=== PATIENT | male | born 1955 | race Caucasian/White ===

== ENCOUNTER → 2016-12-30 | Outpatient (CLI) | payer BC ==
[~2016-12-30] MED LIST: DYZ PO; MULT-190 PO; MULT-506 PO; SIMV80TA2 PO
[2016-12-30 13:07] LABS: ESTIMATED AVERAGE GLUCOSE 332 mg/dl; HA1C FLAG Normal (Normal)
== END | disposition home or self-care (01) ==
LOC: C.LAB 10:55
PROVIDERS: ATTEND Internal Medicine
DX: R73.09 Other abnormal glucose (principal)

== ENCOUNTER → 2017-05-18 | Outpatient (CLI) | payer BC ==
[2017-05-18 16:13] LABS: ALBUMIN 3.9 gm/dl (3.4-5.0); ALT/SGPT 24 U/L (12-78); AST/SGOT 16 U/L (15-37); BLOOD UREA NITROGEN 15 mg/dl (7-18); CALCIUM 9.4 mg/dl (8.5-10.1); CARBON DIOXIDE 26 mmol/L (21-32); CREATININE 1.03 mg/dl (0.60-1.40); GLUCOSE 93 mg/dl (70-99); POTASSIUM 3.8 mmol/L (3.5-5.1); SODIUM 137 mmol/L (136-145)
[2017-05-18 16:16] LABS: ALKALINE PHOSPHATASE 52 U/L (45-117); CHOLESTEROL 128 mg/dl (0-200); LDL CHOLESTEROL CALCULATED 42 mg/dl; TOTAL PROTEIN 8.1 gm/dl (6.4-8.2)
[2017-05-19 07:49] LABS: HEMOGLOBIN A1C 5.7 % (4.5-5.6)
== END | disposition home or self-care (01) ==
LOC: C.LAB1850 14:45
PROVIDERS: ATTEND Internal Medicine
DX: E11.65 Type 2 diabetes mellitus with hyperglycemia (principal)

== ENCOUNTER 2021-06-21 07:52 | Observation (INO) ==
--- NOTE | 2021-06-09 08:36 | Anesthesiology Consultation ---
Date of Service June 09, 2021 Assessment & Plan (1) Encounter for pre-operative examination: - COVID screening: Per assessment on 06/09: No known COVID-19 positive contacts or current COVID-19 related symptoms. Travel screen negative but patient reports that he might visit his son from 06/11-06/13 in [place]. No large gatherings/crowds. Will wear proper PPE/follow Covid precaution guidelines in public. Patient vaccinated. DOS 06/21. Since patient will be requiring admission post-operatively, will plan for recheck with COVID Melchor AM DOS anyway- order placed. Surgeon arranging preop COVID testing. Awaiting results. - Check BSG AM DOS Chart Review Chart Review: Acceptable Risk for Surgery and Patient seen in Pre Admission Testing Teaching & Discussion Pre-Anesthesia Teaching/Discussion Notes: Instructed NPO after midnight before surgery,except medications with 15 cc of water. Medication instructions provided according to the PAT guidelines. History Surgery Operation Date: 06/21/21 12:30 Proposed Procedures p Right Total Knee Arthroplasty - Jesse Garcia MD Height/Weight Height: 5 ft 10 in Weight: 110.4 kg Allergies Allergy/AdvReac Type Severity Reaction Status Date / Time No Known Allergies Allergy Verified 06/08/21 11:19 Medications Home Medications Medication Instructions Recorded Confirmed Last Taken aspirin 81 mg tablet 81 mg PO HS 05/06/20 06/08/21 05/10/20 vitamins A,C,F-femb-nspcmu 7,160 1 tab PO BID 05/06/20 06/08/21 Unknown unit-113 mg-100 unit tablet (PreserVision AREDS) tamsulosin 0.4 mg capsule 0.4 mg PO QAM #90 cap 08/03/20 06/08/21 Unknown triamterene 37.5 1 tab PO QAM #90 tab 09/06/20 06/08/21 Unknown mg-hydrochlorothiazide 25 mg tablet lancets 33 gauge (OneTouch Delica #100 ea 11/29/20 06/06/21 Unknown Lancets) simvastatin 80 mg tablet 80 mg PO HS #90 tab 12/02/20 06/08/21 Unknown metformin 500 mg tablet,extended 1,000 mg PO BID #360 tab 12/29/20 06/08/21 Unknown release 24hr folic acid 1 mg tablet 1 mg PO QAM 05/24/21 06/08/21 Unknown methotrexate sodium 2.5 mg tablet 2.5 mg PO DIRECTED 05/24/21 06/08/21 Unknown blood sugar diagnostic #100 ea 05/25/21 06/06/21 Unknown blood-glucose meter (OneTouch #1 ea 05/25/21 06/06/21 Unknown Ultra2 Meter) lancets (OneTouch UltraSoft #100 ea 05/25/21 06/06/21 Unknown Lancets) finasteride 5 mg tablet 5 mg PO QAM 06/08/21 06/08/21 Unknown glimepiride 1 mg tablet 3 mg PO QAM 06/08/21 06/08/21 Unknown lisinopril 10 mg tablet 10 mg PO QAM 06/08/21 06/08/21 Unknown meloxicam 15 mg tablet 15 mg PO DAILY PRN 06/08/21 06/08/21 Unknown Past Medical History Medical History BPH (benign prostatic hyperplasia) History of kidney stones Hypercholesteremia Macular degeneration Meniere's disease Rheumatoid arthritis Predominantly hands/wrist affected. No cervicalgia/neck involvement per pt. Type 2 diabetes mellitus NIDDM Exercise / Class Metabolic Activity II 4-5 Yardwork/Stairs/Walk up hill (one FS (no CP, no SOB)) Past Family History Family History Mother Diabetes Heart disease Heart disease Breast cancer Sister Diabetes FH: uterine cancer Brother Diabetes Father Heart disease Family/Other Prostate cancer Coronary heart disease Aorta aneurysm Hypertension Other No family history of adverse response to anesthesia Past Surgical History Surgical History H/O prostate biopsy benign History of carpal tunnel surgery of left wrist History of colonoscopy Colonoscopy (05/12/20): MAC at [facility] History of lumbar discectomy x2 History of lumbar spinal fusion History of right inguinal hernia repair History of tonsillectomy and adenoidectomy History of umbilical hernia repair History of wisdom tooth extraction Nausea and vomiting after administration of anesthetic agent S/P hernia repair at age 10 Past Anesthesia History No Hx of Anesthesia Complications (except PONV) and No Family Hx of Anesthesia Complications History of PONV History of PONV and Hx of Motion Sickness Social History Smoking Status: Never smoker Do You Dip or Chew Tobacco: No Hx Alcohol Use: Yes Alcohol type: beer alcohol intake frequency: holidays/special occasions only Hx Substance Use: No substance use type: does not use Review of Systems Patient denies chest pain, shortness of breath, dyspnea on exertion, fever, chills, cough, wheezing, palpitations. Physical Exam Vital Signs VITALS BP 116/76 P 80 TEMP 98.4 SP02 96%RA RESP 16 PHYSICAL Very mildly decreased cervical extension range of motion. Full TMJ range of motion. TMD 4 finger breaths Mallampati Score 2 Dentition: intact, several implants/crowns (including upper front crowns) Lungs: clear throughout to auscultation Cardiac: regular rate and rhythm, no murmurs noted Spine: normal Carotid arteries: negative bruit Extremities: no edema Lab Results Anesthesia Preop Results Results Anesthesia Widget: WBC 6.95 K/uL (4.8-10.8) 05/25/21 Hgb 14.6 g/dL (14.0-18.0) 05/25/21 Hct 43.2 % (42-52) 05/25/21 Plt 307 K/uL (130-400) 05/25/21 Na 135 mmol/L (136-145) L 06/03/21 K 4.1 mmol/L (3.5-5.1) 06/03/21 Cl 104 mmol/L (98-107) 06/03/21 CO2 23 mmol/L (21-32) 06/03/21 BUN 16 mg/dl (6-23) 06/03/21 Creat 1.00 mg/dl (0.6-1.4) 06/03/21 Glucose Level 124 mg/dl (70-99(Fasting)) H 06/03/21 PT 10.6 Seconds (9.0-12.0) 06/09/21 PTT 27.0 Seconds (21.0-31.0) 06/09/21 INR 1.0 (0.9-1.1) 06/09/21 HA1c 6.7 % (4.5-5.6) H 05/25/21 Blood Type A Positive 06/09/21 Antibody Screen NEGATIVE 06/09/21 Testing Electrocardiogram Date: 06/09/21 Sinus rhythm at 72 bpm. Nonspecific T wave abnormality. Chest X-Ray Date: 06/09/21 FINDINGS: No pneumothorax. No pleural effusions. The heart is normal in size. Old, healed right-sided rib fracture. Mild diffuse interstitial thickening. This is likely chronic. No focal lung consolidations to suggest pneumonia. No evidence for pulmonary edema. IMPRESSION: No significant change compared to the prior study. No acute process.
--- NOTE | 2021-06-09 08:38 | PAT Medication Instructions ---
Medication Instructions Date of Service June 09, 2021 Home Medications Medication Instructions Recorded tamsulosin 0.4 mg capsule 0.4 mg PO QAM #90 cap 08/03/20 triamterene 37.5 1 tab PO QAM #90 tab 09/06/20 mg-hydrochlorothiazide 25 mg tablet lancets 33 gauge (OneTouch Delica #100 ea 11/29/20 Lancets) simvastatin 80 mg tablet 80 mg PO HS #90 tab 12/02/20 metformin 500 mg tablet,extended 1,000 mg PO BID #360 tab 12/29/20 release 24hr blood sugar diagnostic #100 ea 05/25/21 blood-glucose meter (OneTouch #1 ea 05/25/21 Ultra2 Meter) lancets (OneTouch UltraSoft #100 ea 05/25/21 Lancets) aspirin 81 mg tablet 81 mg PO HS vitamins A,C,E-mcvx-dokkki 7,160 unit-113 mg-100 unit tablet (PreserVision AREDS) 1 tab PO BID tamsulosin 0.4 mg capsule 0.4 mg PO QAM triamterene 37.5 mg-hydrochlorothiazide 25 mg tablet 1 tab PO QAM simvastatin 80 mg tablet 80 mg PO HS metformin 500 mg tablet,extended release 24hr 1,000 mg PO BID folic acid 1 mg tablet 1 mg PO QAM methotrexate sodium 2.5 mg tablet 2.5 mg PO DIRECTED finasteride 5 mg tablet 5 mg PO QAM glimepiride 1 mg tablet 3 mg PO QAM lisinopril 10 mg tablet 10 mg PO QAM meloxicam 15 mg tablet 15 mg PO DAILY PRN ASK your surgeon for instructions meloxicam 15 mg tablet 15 mg PO DAILY PRN ASK your prescriber and surgeon methotrexate sodium 2.5 mg tablet 2.5 mg PO DIRECTED STOP taking 2 weeks before surgery vitamins A,C,S-wixd-ctrimi 7,160 unit-113 mg-100 unit tablet (PreserVision AREDS) 1 tab PO BID DO NOT take the morning of surgery triamterene 37.5 mg-hydrochlorothiazide 25 mg tablet 1 tab PO QAM metformin 500 mg tablet,extended release 24hr 1,000 mg PO BID folic acid 1 mg tablet 1 mg PO QAM glimepiride 1 mg tablet 3 mg PO QAM lisinopril 10 mg tablet 10 mg PO QAM Take morning of surgery With a small sip of water, OTHERWISE NOTHING TO EAT OR DRINK AFTER MIDNIGHT: finasteride 5 mg tablet 5 mg PO QAM tamsulosin 0.4 mg capsule 0.4 mg PO QAM Take evening before surgery aspirin 81 mg tablet 81 mg PO HS (unless surgeon directed otherwise) metformin 500 mg tablet,extended release 24hr 1,000 mg PO BID simvastatin 80 mg tablet 80 mg PO HS Other Notes If you have any questions please call us at [phone] or [phone] or [phone] or [phone]
[~2021-06-21 07:52] MED LIST changes: +ACETAMINOPHEN 500 MG TAB PO SCH; +BUPIVACAINE 0.5 % 5 MG/1 ML PF 10ML VIAL ONE; +BUPIVACAINE LIPOSOME/PF 266 MG, BUPIVACAINE/EPINEPHRINE 50 ML, SODIUM CHLORIDE 0.9% 30 ... INFIL SCH; +CeleBREX 200 MG CAP PO SCH; -DYZ PO; +EPINEPHrine INJ 1 MG/ML AMP ONE; +FAMOTIDINE 20 MG TAB PO SCH; +LR 500ML BOLUS, THEN 15ML/HR IV SCH; +LR 60ML/HR IV SCH; +METOCLOPRAMIDE HCL 10 MG TABLET PO SCH; -MULT-190 PO; -MULT-506 PO; +ROPIVACAINE 0.5% 5 MG/ML 30 ML VIAL ONE; -SIMV80TA2 PO; +Scopolamine 1 MG TDSY TD SCH; +TRANEXAMIC ACID 1,000 MG **IV Intra-op IV SCH; +ceFAZolin 2000MG 2,000 MG/15 ML SYR IV SCH
--- NOTE | 2021-06-21 08:44 | History & Physical Bridge Note ---
Date of Service June 21, 2021 History & Physical Bridge Note I have examined the patient, reviewed the History & Physical and in the interval since the performance of the History & Physical I have noted the following changes of clinical significance: no changes noted
[2021-06-21] MEDS ORDERED: MIDAZOLAM HCL 1 MG/ML 2ML VIAL ONE (09:08)
[2021-06-21] MEDS ORDERED: fentaNYL citrate 100 MCG/2 ML VIAL ONE (09:09)
[2021-06-21] MEDS ORDERED: HYDROmorphone INJ 2 MG/ML SYR/VIAL IV PRN (09:20)
[2021-06-21] MEDS ORDERED: ePHEDrine sulfate 50 MG/ML AMP IV PRN (09:20)
[2021-06-21] MEDS ORDERED: ATROPINE SULFATE 0.1 MG/ML 10ML SYR IV PRN (09:20)
[2021-06-21] MEDS ORDERED: fentaNYL citrate 100 MCG/2 ML VIAL IV PRN (09:20)
[2021-06-21] MEDS ORDERED: ONDANSETRON INJ 2 MG/ML 2 ML VIAL IV PRN ×2 (09:20→14:55)
[2021-06-21] MEDS ORDERED: ONDANSETRON INJ 2 MG/ML 2 ML VIAL ONE (09:24)
[2021-06-21] MEDS ORDERED: PROPOFOL IV EMULSION 10 MG/ML 20 ML VIAL IV ONE ×2 (09:24→11:28)
[2021-06-21] MEDS ORDERED: LIDOCAINE 2% 2 ML VIAL/AMP(20MG/ML) INFIL ONE (09:24)
[2021-06-21] MEDS ORDERED: BUPIVACAINE LIPOSOME 1.3% 266 MG/20 ML VIAL ONE (10:44)
[2021-06-21] MEDS ORDERED: BUPIVACAINE/EPINEPHRINE 0.25% 1:200,000 30 ML VIAL ONE (10:44)
[2021-06-21] MEDS ORDERED: SODIUM CHLORIDE 0.9% PF 50 ML VIAL ONE (10:44)
[2021-06-21] MEDS ORDERED: PHENYLEPHRINE HCL 10 MG/ML VIAL ONE (11:34)
[2021-06-21] MEDS ORDERED: ePHEDrine sulfate 50 MG/ML SYR ONE (11:49)
--- NOTE | 2021-06-21 13:05 | Operative Report ---
PG Post Operative Report Pre & Post Diagnosis Operation Date: 06/21/21 10:40 Pre-Op Diagnosis: Right Knee Advanced Degenerative Joint Disease Post-Op Diagnosis: Right Knee Advanced Degenerative Joint Disease I identified the patient and participated in the time-out.: Yes Procedure Operation Date: 06/21/21 10:40 Actual Procedures p Right Total Knee Arthroplasty(Right) - Jesse Garcia MD Surgeon Jesse Garcia MD Nuclear Licensing Engineer Aubrey Gunderson PA-C Estimated Blood Loss 50 Findings Consistent with Post-Op Diagnosis Operative findings were advanced right knee DJD. Extensive grade 4 dlef-io-kqsu disease of the medial compartment with less extensive grade 4 changes elsewhere. He had a fixed varus deformity to his knee and about a 10 to 15 degree flexion contracture. Moderate-sized joint effusion. Osteophytes in all 3 compartments. Fluids 1300 cc Specimens Right knee sent for pathology Anesthesia Type Spinal MAC Complications none Disposition Accompanied Patient To Recovery: No Indications Patient is a 66-year-old gentleman said a long history of bilateral knee pain discomfort right side a bit worse than the left. Is been through extensive conservative treatment the past which became less successful over time. He was actually scheduled for surgery about a year ago but canceled. He has become more debilitated by his disease even over the past year. He is elected proceed with total knee arthroplasty. Description of Procedure Operative implants consist of: 1. Biomet Vanguard size 70 right posterior stabilized femoral component. 2. Biomet size 79 tibial tray. 3. 10 mm posterior stabilized polyethylene insert. 4. 34 x 8 and half all polypatella. The patient was taken the operating, identified, and placed on the operating table supine position protectors were properly padded. IV antibiotics tried by anesthesia team. A spinal anesthetic had to been implemented holding area. Machado catheter was placed in sterile fashion. Right thigh turn was then placed in the right lower extremities then prepped and draped in usual sterile fashion. The right leg was elevated exsanguinated with use of an Esmarch in terms playset 300 mmHg. An anterior approach of the right knee was then performed to longitudinal incision centered over the patella. Sharp dissection was carried through subcutaneous tissue down the extensor mechanism. Medial parapatellar arthrotomy incision was made. Some subperiosteal dissection was carried out medially. The fat pad was resected beneath patella tendon. The lateral patellofemoral ligament was released. Patella subluxated laterally and the knee was flexed. The osteophytes taken off distal femur. The ACL and PCL then released from distal femur and the tibia subluxated anteriorly. The external tibial alignment jig was then placed in the anterior face of the tibia and adjusted 16 mm medially. Proximal tibial cut was made to remove about a mil limeter bone from the most deficient aspect medial tibial plateau. Some osteophytes taken off medial and posterior medially. The tibia was then sized to a size 79. Attention drawn the femur. The distal femur was held with a sharp drill. Intramedullary canal was suction. A right 6 degree valgus cutting guide was placed. Distal femoral cutting block was pinned in place. Distal femoral cut was made to take an additional 3 mm bone off distal femur. The femur was then sized to a size 70. Sized exactly to a 70. The AP cutting block was pinned parallel to the epicondylar axis which was 4 degrees of external rotation. Anterior cut, anterior chamfer, posterior cut, posterior chamfer cuts were made. The box cutting guide was placed in just slight lateral box cut was made. The knee was flexed. The remnants of the medial and lateral menisci were excised. The osteophytes taken off the posterior aspect of femur. Trial femoral component was placed. Tibial tray was pinned in maximum external rotation and the drill and stem punch used to create defect in proximal tibia for the tibial tray. Knee was then trialed and the 10 mm insert fit most appropriately. Attention drawn the patella. The patella was cleaned of all soft tissues. Patella thickness measured 27 mm in thickness was cut down to 15. Was sized to a size 34 patella. The lug holes were drilled for the 34 patella. The lateral osteophyte was removed. Patella button was placed. Knee was taken through range of motion and the patella tracked nicely with no thumbs test. Attention drawn to placing permanent compo nents. All trial components were removed. Bone plug was placed in the distal femur limit blood loss. A double batch Palacos G cement was mixed. Biomet Vanguard size 70 right posterior stabilized femoral component, size 79 tibial tray, 10 mm posterior stabilized polyethylene insert, and a 34 x 8 and half all polypatella were then cemented in place. The knee was brought out into full extension until cement hardened. Final cement check was then performed. The pericapsular tissues were injected with total 100 cc of combination of 20 cc of Exparel, 30 cc normal saline, 50 cc of quarter percent Marcaine with epinephrine. Patient did receive 1 g tranexamic acid. The tourniquet was then let down for final turn time of 60 minutes. Hemostasis assured use electrocautery. Extensor mechanism closed with combination 1 PDS suture and #1 Vicryl sutures in a [id number] fashion. Extensor mechanism was checked found to be intact and subcutaneous tissues then closed with 2 Dexon suture in buried interrupted fashion the skin was closed with skin emerita. Leg was then cleaned and dried and sterile dressed with Xeroform, 4 x 4's, sterile cast padding, Jonas bandage were applied. Patient then transferred to the recovery room in stable condition. Patient tolerated procedure well and there were no complications. Aubrey Gunderson, my physician business services assistant, was present for the entire procedure. His assistance was essential and required for appropriate patient positioning, prepping and draping, surgical exposure, performing the technical details of the operation, placement the implants, closure of the wound, and placement of the sterile bandage. I attest to the content of the Intraoperative Record and any orders documented therein. Any exceptions are noted below.
--- NOTE | 2021-06-21 13:41 | XRay Report ---
XR knee RT 1 or 2V routine HISTORY: 66 years-old Male Surgical Post Op right knee total joint arthroplasty COMPARISON: Knee radiographs 06/06/2021 TECHNIQUE: 2 views of the right knee FINDINGS: Right knee total joint arthroplasty with patellar resurfacing. Anterior midline skin emerita are note d along with expected postoperative soft tissue swelling with deep tissue air. No acute fracture, ali gnment or unexpected opaque foreign body. IMPRESSION: Right knee total joint arthroplasty with expected postoperative changes. ACT 112: Negative or not required by law. The above report was generated using voice recognition software. It may contain grammatical, syntax o r spelling errors. Electronically signed by: Jamison Hardy M.D. 06/21/2021 1:40 PM
--- NOTE | 2021-06-21 14:17 | Anesthesiology Progress Note ---
Date of Service June 21, 2021 Anesthesia Post Procedure Vital Signs Vital Signs: Temp Pulse Pulse Resp BP Pulse Ox 06/21/21 14:05 80 20 127/69 97 06/21/21 13:55 75 14 128/71 96 06/21/21 13:45 80 24 119/68 97 06/21/21 13:35 78 20 117/66 97 06/21/21 13:25 79 12 118/62 96 06/21/21 13:15 80 22 118/58 L 100 06/21/21 13:05 80 16 101/58 L 99 06/21/21 12:57 36.7 C 83 14 101/58 L 100 06/21/21 08:30 37 C 83 20 142/86 H 96 Pain Intensity Right Knee: Pain Intensity: 3 Transfer of Care Handoff Completed per policy Notes Mental Status: alert / awake / arousable and participated in evaluation Patient Amnestic to Procedure: Yes Nausea / Vomiting: adequately controlled Pain: adequately controlled Airway Patency, RR, SpO2: stable & adequate BP & HR: stable & adequate Hydration State: stable & adequate Anesthetic Complications: no major complications apparent and Pt Satisfied with anesthetic care
[2021-06-21] MEDS ORDERED: MAGNESIUM HYDROXIDE SUSP 30 ML UDC PO PRN (14:55)
[2021-06-21] MEDS ORDERED: PHARMACY GLYCEMIC MGMT CONSULT PRN (14:55)
[2021-06-21] MEDS ORDERED: ALUMINUM/MAGNESIUM SUSP 30 ML UDC PO PRN (14:55)
[2021-06-21] MEDS ORDERED: GLUCOSE 40% GEL 15 GM TUBE PO PRN (14:55)
[2021-06-21] MEDS ORDERED: bisacodyL 10 MG SUPP PR PRN (14:55)
[2021-06-21] MEDS ORDERED: CARBOHYDRATES FOR HYPOGLYCEMIA PO PRN (14:55)
[2021-06-21] MEDS ORDERED: GLUCOSE 10 TABS/TUBE PO PRN (14:55)
[2021-06-21] MEDS ORDERED: NALOXONE HCL 0.4 MG/1 ML VIAL/CARP IV PRN (14:55)
[2021-06-21] MEDS ORDERED: METOCLOPRAMIDE HCL INJ 5 MG/ML 2 ML VIAL IV PRN (14:55)
[2021-06-21] MEDS ORDERED: GLUCAGON FOR INJ 1 MG VIAL SQ PRN (14:55)
[2021-06-21] MEDS ORDERED: oxyCODONE HCL IR 5 MG TAB (IMMEDIATE RELEASE) PO PRN (14:55)
[2021-06-21] MEDS ORDERED: HYDROmorphone INJ 0.5 MG/0.5 ML SYR IV PRN (14:55)
[2021-06-21] MEDS ORDERED: DEXTROSE 50% 50 ML SYRINGE IV PRN (14:55)
[2021-06-21] MEDS: Scopolamine CHECK PATCH PLACEMENT SCH ×2 (15:11→23:35)
[2021-06-21] MEDS: SODIUM CHLORIDE 0.9% 1000ML 1,000 ML IV SCH (15:11)
[2021-06-21] MEDS: KETOROLAC TROMETHAMINE 15 MG/ML VIAL IV SCH ×2 (15:27→21:48)
[2021-06-21] MEDS: ACETAMINOPHEN 500 MG TAB PO SCH ×2 (15:27→21:48)
[2021-06-21] MEDS: INSULIN ASPART PER UNIT SC SCH ×4 (17:16→20:29)
[2021-06-21] MEDS: ASCORBIC ACID 500 MG TAB PO SCH (18:20)
[2021-06-21] MEDS: ceFAZolin 2000MG 2,000 MG/15 ML SYR IV SCH (18:21)
[2021-06-21] MEDS ORDERED: TRANEXAMIC ACID / 0.7% NACL 1,000 MG/100 ML BAG IV SCH (19:00)
[2021-06-21] MEDS: ASPIRIN 81 MG ECTAB PO SCH (20:19)
[2021-06-21] MEDS: DOCUSATE SODIUM 100 MG CAP PO SCH (20:20)
[2021-06-21] MEDS: TAPENTADOL HCL ER 50 MG TABCR PO SCH (20:30)
[2021-06-21] MEDS ORDERED: SIMVASTATIN 80 MG TAB PO SCH (21:00)
[2021-06-21] MEDS ORDERED: NON-FORMULARY MEDICATION (Vitamins A,C,E-Zinc-Copper [Preservision Areds] 7,160 unit- 113 PO SCH (21:00)
[2021-06-21] MEDS ORDERED: SENNA 8.6 MG TAB PO SCH (21:00)
[2021-06-22] MEDS: KETOROLAC TROMETHAMINE 15 MG/ML VIAL IV SCH ×3 (03:00→16:43)
[2021-06-22] MEDS: ceFAZolin 2000MG 2,000 MG/15 ML SYR IV SCH (03:00)
[2021-06-22] MEDS: SODIUM CHLORIDE 0.9% 1000ML 1,000 ML IV SCH (04:10)
[2021-06-22] MEDS: ACETAMINOPHEN 500 MG TAB PO SCH ×2 (05:47→13:40)
[2021-06-22 07:34] LABS: Hematocrit (blood only) 35.9 % (42-52); Hemoglobin 12.1 g/dL (14.0-18.0); Mean Corpuscular Hemoglobin 31.8 pg (25-34); Mean Corpuscular Hgb Conc 33.7 g/dL (32-36); Mean Corpuscular Volume 94.5 fL (80-100); Mean Platelet Volume 8.9 fL (7.4-10.4); Platelet Count 251 K/uL (130-400); RDW Coefficient of Variation 13.5 % (11.5-14.5); RDW Standard Deviation 46.9 fL (36.4-46.3); White Blood Count 8.41 K/uL (4.8-10.8)
[2021-06-22 08:05] LABS: BUN Creatinine Ratio 15.3 (10-20); Calcium 8.7 mg/dl (8.5-10.1); Creatinine Clr Calc Pharmacy 70.9 ml/min; Est GFR (African American) 68.8 ml/min; Est GFR (Non-African American) 59.4 ml/min; Potassium 4.2 mmol/L (3.5-5.1)
[2021-06-22] MEDS: Scopolamine CHECK PATCH PLACEMENT SCH ×2 (08:40→16:43)
[2021-06-22] MEDS ORDERED: GLIMEPIRIDE 2 MG TAB PO SCH (09:00)
[2021-06-22] MEDS ORDERED: FINASTERIDE 5 MG TAB PO SCH (09:00)
[2021-06-22] MEDS ORDERED: TRIAMTERENE/HCTZ 37.5/25MG TAB PO SCH (09:00)
[2021-06-22] MEDS ORDERED: TAMSULOSIN HCL 0.4 MG CAP PO SCH (09:00)
[2021-06-22] MEDS ORDERED: FOLIC ACID 1 MG TAB PO SCH (09:00)
[2021-06-22] MEDS ORDERED: lisinopril 10 MG TAB PO SCH (09:00)
[2021-06-22] MEDS ORDERED: MULTIVITAMIN TAB PO SCH (09:00)
[2021-06-22] MEDS: TAPENTADOL HCL ER 50 MG TABCR PO SCH (09:13)
[2021-06-22] MEDS: DOCUSATE SODIUM 100 MG CAP PO SCH (09:14)
[2021-06-22] MEDS: ASPIRIN 81 MG ECTAB PO SCH (09:14)
[2021-06-22] MEDS: ASCORBIC ACID 500 MG TAB PO SCH ×2 (09:14→18:00)
[2021-06-22] MEDS: INSULIN ASPART PER UNIT SC SCH ×2 (09:21→13:22)
[2021-06-22] MEDS: metFORMIN HCL ER 500 MG TABCR PO SCH ×2 (09:40→18:00)
--- NOTE | 2021-06-22 12:45 | Pharmacy Report ---
Pharmacy Glycemic Short Note 2 - Date of Service June 22, 2021 - Glycemic Short BSG Results (Last 24 hours): 06/21/21 06/21/21 06/21/21 12:58 17:08 19:52 Glucose POC Glucose 123 H 115 H 158 H 06/22/21 06/22/21 06/22/21 07:05 08:11 12:16 Glucose 133 H POC Glucose 137 H 149 H OUTPATIENT ANTIDIABETIC REGIMEN: * Metformin XR 1 g PO BIDM * Glimepiride 3 mg PO qAM * HbA1c: 6.7% (05/25/21) ASSESSMENT: * is a 66 year old male POD #1 s/p right total knee arthroplasty * no perioperative steroids given or ongoing * BSGs have been very well-controlled postoperatively * Will restart home metformin today and use loosened Novolog parameters in place of glimepiride PLAN FOR INPATIENT GLYCEMIC CONTROL: * Hold glimepiride * Restart home metformin XR 1000 mg PO BIDM * Basal insulin * hold * Bolus insulin * NovoLog per scale ACHS or Q6hrs while NPO * Goal Range: Low 110 mg/dL - High 140 mg/dL * Correction Factor: 35 mg/dL/unit * Nutritional / Prandial insulin per carb ratio of 1 unit per 12 grams CHO consumed
--- NOTE | 2021-06-22 15:00 | Progress Notes ---
DATE OF SERVICE: 06/22/2021. SUBJECTIVE: A 66-year-old gentleman postoperative day 1 from right knee replaced. He is doing prett y well. Pain has been controlled. Therapy went reasonably well. No chest pain or shortness of maira th. Not feeling dizzy or lightheaded. OBJECTIVE: VITAL SIGNS: Temperature 37.2. Vital signs are stable. GENERAL: Shows a pleasant middle-aged male. Sitting up in his bedside chair, looks pretty comfortab le. LUNGS: Clear to auscultation. HEART: Regular rate and rhythm. ABDOMEN: Soft, nontender, nondistended. EXTREMITIES: Grossly neurovascularly intact except as follows. Examination of the right leg reveals the dressing to be clean, dry and intact. He can do a straight leg raise. He bends the knee to 90 degrees pretty easily. He can dorsiflex and plantarflex foot anastasiya ropriately. LABORATORY: Hemoglobin 12.1. Hematocrit 35.9. Electrolytes are stable. ASSESSMENT: A 66-year-old gentleman, postoperative day 1 from right knee replacement, doing pretty w ell. Pain is controlled. He is neurologically intact. PLAN: 1. DVT prophylaxis include thigh-high TEDs, SCDs, and aspirin twice a day. 2. PT, OT, weightbear as tolerated. Right total knee protocol. 3. Pain control, doing okay with current pain regimen. 4. Disposition: Plan to discharge to home with some home health. If he does okay in therapy, we wi ll try and get him home today. Job ID: [id number]
--- NOTE | 2021-06-27 06:49 | Discharge Summary ---
Date of Service June 27, 2021 Discharge Data Procedures Performed Operation Date: 06/21/21 10:40 Actual Procedures p Right Total Knee Arthroplasty(Right) - Jesse Garcia MD Hospital Course (1) Status post total right knee replacement: This patient is a 66 year old male admitted on 06/21/21 and underwent total knee arthroplasty. He tolerated the procedure well and there were no complications. Transferred to the PACU post op and later to the orthopedic floor for further care. He was given ancef for antibiotic prophylaxis. He was also given TESFAYE stockings, SCDs, and aspirin for DVT prophylaxis. Hemoglobin, hematocrit, and vital signs were monitored during his hospital stay and remained stable. Did not require any blood transfusions. There were no complications during his hospital stay. By post op day #1 the patient was tolerating a diabetic diet, pain was reasonably controlled with oral pain medicine, and he was participating in physical therapy. On post op day #1 the patient was discharged home and set up with home health care. He was given printed discharge instructions including prescriptions for extra strength tylenol, aspirin, flomax, and oxycodone. Sctot nue physical therapy, weight bearing as tolerated. Continue TESFAYE stockings. Follow up approximately 2 weeks post op or sooner if there are problems or concerns. Coding Level of Care Code None Diagnoses Status post total right knee replacement Z96.651
== END 2021-06-22 18:08 | disposition home health service (06) ==
LOC: ASU 07:52 → 3W 07:52

== ENCOUNTER 2024-04-08 08:31 | Inpatient (IN) ==
--- NOTE | 2024-03-24 12:18 | PAT Medication Instructions ---
Medication Instructions Date of Service March 24, 2024 Home Medications Medication Instructions Recorded blood-glucose meter (OneTouch #1 ea 05/25/21 Ultra2 Meter kit) mecobalamin (vitamin B12) 1,000 1,000 mcg sublingual DAILY 90 days 05/23/22 mcg disintegrating #90 tabs tablet,sublingual blood sugar diagnostic (OneTouch #100 ea 05/03/23 Ultra Test strips) lancets #100 ea 05/03/23 lisinopril 5 mg tablet 5 mg PO DAILY #90 tabs 05/03/23 simvastatin 80 mg tablet 80 mg PO HS #90 tabs 05/03/23 tamsulosin 0.4 mg capsule 0.4 mg PO QAM #90 caps 05/03/23 gabapentin 300 mg capsule 300 mg PO BID #180 caps 05/18/23 diclofenac sodium 75 mg 75 mg PO BID PRN pain 90 days #180 11/19/23 tablet,delayed release tabs semaglutide 0.25 mg or 0.5 mg (2 0.25 mg (0.368 mL) subcut Q7D #3 mL 11/19/23 mg/3 mL) subcutaneous pen injector (MyMosa) sildenafil 25 mg tablet 25 mg PO DAILY PRN sexual activity 11/19/23 #10 tabs clindamycin HCl 300 mg capsule 600 mg (2 x 300 mg) PO ONCE #6 caps 11/28/23 tramadol 50 mg tablet 50 mg PO Q6H PRN pain #12 tabs 12/11/23 lancets 33 gauge #100 ea 02/29/24 metformin 500 mg tablet,extended 1,000 mg (2 x 500 mg) PO BID 90 03/07/24 release 24 hr days #360 tabs vitamins A,C,I-qzkw-vtdupq 2,148 mcg-113 mg-45 mg-17.4 mg tablet (PreserVision AREDS) 1 tab PO BID folic acid 1 mg tablet 1 mg PO QAM methotrexate sodium 2.5 mg tablet 2.5 mg PO DIRECTED mecobalamin (vitamin B12) 1,000 mcg disintegrating tablet,sublingual 1,000 mcg sublingual DAILY aspirin 81 mg tablet,delayed release 81 mg PO DAILY lisinopril 5 mg tablet 5 mg PO DAILY simvastatin 80 mg tablet 80 mg PO HS tamsulosin 0.4 mg capsule 0.4 mg PO QAM gabapentin 300 mg capsule 300 mg PO BID diclofenac sodium 75 mg tablet,delayed release 75 mg PO BID PRN semaglutide 0.25 mg or 0.5 mg (2 mg/3 mL) subcutaneous pen injector (Ozempic) 0.25 mg (0.368 mL) subcut Q7D sildenafil 25 mg tablet 25 mg PO DAILY PRN clindamycin HCl 300 mg capsule 600 mg (2 x 300 mg) PO ONCE tramadol 50 mg tablet 50 mg PO Q6H PRN metformin 500 mg tablet,extended release 24 hr 1,000 mg (2 x 500 mg) PO BID adalimumab 40 mg/0.8 mL subcutaneous syringe kit (Humira) 0 mg subcut .COMPLEX STOP 7 days before surgery if okay with prescriber methotrexate sodium 2.5 mg tablet 2.5 mg PO DIRECTED semaglutide 0.25 mg or 0.5 mg (2 mg/3 mL) subcutaneous pen injector (Ozempic) 0.25 mg (0.368 mL) subcut Q7D Continue as directed clindamycin HCl 300 mg capsule 600 mg (2 x 300 mg) PO ONCE ASK your surgeon for instructions diclofenac sodium 75 mg tablet,delayed release 75 mg PO BID PRN ASK your prescriber and surgeon aspirin 81 mg tablet,delayed release 81 mg PO DAILY adalimumab 40 mg/0.8 mL subcutaneous syringe kit (Humira) 0 mg subcut .COMPLEX STOP taking 2 weeks before surgery (or as soon as possible if surgery is within 2 weeks) vitamins A,C,F-urnt-vhpmum 2,148 mcg-113 mg-45 mg-17.4 mg tablet (PreserVision AREDS) 1 tab PO BID DO NOT take the morning of surgery folic acid 1 mg tablet 1 mg PO QAM mecobalamin (vitamin B12) 1,000 mcg disintegrating tablet,sublingual 1,000 mcg sublingual DAILY lisinopril 5 mg tablet 5 mg PO DAILY sildenafil 25 mg tablet 25 mg PO DAILY PRN metformin 500 mg tablet,extended release 24 hr 1,000 mg (2 x 500 mg) PO BID Take morning of surgery With a small sip of water, OTHERWISE NOTHING TO EAT OR DRINK AFTER MIDNIGHT: tamsulosin 0.4 mg capsule 0.4 mg PO QAM gabapentin 300 mg capsule 300 mg PO BID tramadol 50 mg tablet 50 mg PO Q6H PRN(if needed) Take evening before surgery simvastatin 80 mg tablet 80 mg PO HS gabapentin 300 mg capsule 300 mg PO BID tramadol 50 mg tablet 50 mg PO Q6H PRN(if needed) metformin 500 mg tablet,extended release 24 hr 1,000 mg (2 x 500 mg) PO BID Other Notes If you have any questions please call us at [phone] or [phone] or [phone] or [phone]
--- NOTE | 2024-03-25 12:57 | Anesthesiology Consultation ---
Date of Service March 25, 2024 Assessment & Plan (1) Encounter for pre-operative examination: Chart Review Chart Review: Acceptable Risk for Surgery and Patient seen in Pre Admission Testing - Check BSG AM DOS Per PAT appt on 03/25/24, no recent illness/disease exposures, illness related symptoms, or recent illness/disease positive tests. Will leave to surgeon's discretion if preop Covid testing needed Teaching & Discussion Pre-Anesthesia Teaching/Discussion Notes: Instructed NPO after midnight before surgery,except medications with 15 cc of water. Medication instructions p rovided according to the [facility] guidelines. History Surgery Operation Date: 04/08/24 12:30 Proposed Procedures p Right Patellectomy and Extensor Mechanism Repair - Jesse Garcia MD Height/Weight Height: 5 ft 10 in Weight: 109.1 kg Allergies Allergy/AdvReac Type Severity Reaction Status Date / Time No Known Allergies Allergy Verified 03/21/24 08:02 Medications Home Medications Medication Instructions Recorded Confirmed Last Taken vitamins A,C,U-nynz-dfzgwp 2,148 1 tab PO BID 05/06/20 03/21/24 06/07/21 09:00 mcg-113 mg-45 mg-17.4 mg tablet (PreserVision AREDS) folic acid 1 mg tablet 1 mg PO QAM 05/24/21 03/21/24 06/17/21 07:00 methotrexate sodium 2.5 mg tablet 2.5 mg PO DIRECTED 05/24/21 03/21/24 06/07/21 07:00 blood-glucose meter (OneTouch #1 ea 05/25/21 02/11/24 Unknown Ultra2 Meter kit) mecobalamin (vitamin B12) 1,000 1,000 mcg sublingual DAILY 90 days 05/23/22 03/21/24 Unknown mcg disintegrating #90 tabs tablet,sublingual aspirin 81 mg tablet,delayed 81 mg PO DAILY 07/15/22 03/21/24 Unknown release blood sugar diagnostic (OneTouch #100 ea 05/03/23 02/11/24 Unknown Ultra Test strips) lancets #100 ea 05/03/23 02/11/24 Unknown lisinopril 5 mg tablet 5 mg PO DAILY #90 tabs 05/03/23 03/21/24 Unknown simvastatin 80 mg tablet 80 mg PO HS #90 tabs 05/03/23 03/21/24 Unknown tamsulosin 0.4 mg capsule 0.4 mg PO QAM #90 caps 05/03/23 03/21/24 Unknown gabapentin 300 mg capsule 300 mg PO BID #180 caps 05/18/23 03/21/24 Unknown diclofenac sodium 75 mg 75 mg PO BID PRN pain 90 days #180 11/19/23 03/21/24 Unknown tablet,delayed release tabs semaglutide 0.25 mg or 0.5 mg (2 0.25 mg (0.368 mL) subcut Q7D #3 mL 11/19/23 03/21/24 Unknown mg/3 mL) subcutaneous pen injector (Ozempic) sildenafil 25 mg tablet 25 mg PO DAILY PRN sexual activity 11/19/23 03/21/24 Unknown #10 tabs clindamycin HCl 300 mg capsule 600 mg (2 x 300 mg) PO ONCE #6 caps 11/28/23 03/21/24 Unknown tramadol 50 mg tablet 50 mg PO Q6H PRN pain #12 tabs 12/11/23 03/21/24 Unknown lancets 33 gauge #100 ea 02/29/24 Unknown metformin 500 mg tablet,extended 1,000 mg (2 x 500 mg) PO BID 90 03/07/24 03/21/24 Unknown release 24 hr days #360 tabs adalimumab 40 mg/0.8 mL 0 mg subcut .COMPLEX 03/21/24 03/21/24 Unknown subcutaneous syringe kit (Humira) Additional Notes: Patient is NOT taking Ozempic as of PAT appt 03/25/24- does not plan to start Ozempic prior to surgery on 04/08/24 Past Medical History Medical History (Updated 03/25/24 @ 14:22 by Jessica Soliz PA-C) BPH (benign prostatic hyperplasia) Cervical radiculopathy Diabetes History of anemia Unsure if ever had blood transfusion- possibly in 2001 post op from lumbar surgery History of COVID-19 (01/2024) no hosp; resolved History of kidney stones HTN (hypertension) Hypercholesteremia Macular degeneration Meniere's disease Neuropathy mostly RLE Osteoarthritis Rheumatoid arthritis Systolic murmur Trace MR/trace MS/mild TR per 06/2023 ECHO 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 Exercise / Class Metabolic Activity II 4-5 Yardwork/Stairs/Walk up hill (one flight of stairs - no chest pain or SOB ) Past Family History Family History Mother Diabetes Heart disease Heart disease Breast cancer Sister Diabetes FH: uterine cancer Brother Diabetes Father Heart disease Family/Other Prostate cancer Coronary heart disease Aorta aneurysm Hypertension Other No family history of adverse response to anesthesia Past Surgical History Surgical History H/O prostate biopsy benign History of carpal tunnel surgery of left wrist History of colonoscopy Colonoscopy (05/12/20): MAC at [facility] History of dental surgery Dental extractions History of lumbar discectomy x2 History of lumbar spinal fusion History of right inguinal hernia repair History of tonsillectomy and adenoidectomy History of umbilical hernia repair History of wisdom tooth extraction Nausea and vomiting after administration of anesthetic agent S/P hernia repair at age 10 Status post right knee replacement (2021) Past Anesthesia History No Hx of Anesthesia Complications (with exception to PONV (happens occasionally)) and No Family Hx of Anesthesia Complications History of PONV No Hx of Motion Sickness and History of PONV (occasional ) Social History Smoking Status: Never smoker Do You Dip or Chew Tobacco: No Hx Alcohol Use: Yes Alcohol type: beer alcohol intake frequency: holidays/special occasions only Hx Substance Use: No substance use type: does not use Review of Systems Patient denies chest pain, shortness of breath, dyspnea on exertion, reflux, cough, wheezing, palpitations. No hx of seizures, stroke, AK, apnea/snoring. No hx of blood clots Physical Exam Vital Signs VITALS BP 124/72 P 66 TEMP 97.5 SP02 98% RESP 16 Constitutional no acute distress ENMT Mouth: no TMJ clicking Thyromental Distance: > or= 3.5 Finger Breadths (3.5) Mallampati Class: II Permanent implants to top front teeth Missing molars Neck + limited neck extension Respiratory normal respiratory effort; no respiratory distress Auscultation: lungs clear to auscultation bilaterally; no wheezes Cardiovascular Rate/Rhythm: regular rate and regular rhythm Heart Sounds: + murmur (II/ murmur ) Vessels: no carotid bruit Musculoskeletal Spine: + pain with cervical ROM Extremities: extremities normal to inspection Psychiatric Orientation: alert Lab Results Anesthesia Preop Results Results Anesthesia Widget: WBC 5.36 K/ul (4.8-10.8) 03/25/24 Hgb 13.3 g/dl (14.0-18.0) L 03/25/24 Hct 39.8 % (42.0-52.0) L 03/25/24 Plt 327 K/uL (130-400) 03/25/24 Na 134 mmol/L (136-145) L 03/25/24 K 4.6 mmol/L (3.5-5.1) 03/25/24 Cl 102 mmol/L (98-107) 03/25/24 CO2 26 mmol/L (21-32) 03/25/24 BUN 25 mg/dl (6-23) H 03/25/24 Creat 1.20 mg/dl (0.6-1.4) 03/25/24 Glucose Level 173 mg/dl (70-99(Fasting)) H 03/25/24 PT 10.2 Seconds (9.0-12.0) 03/25/24 PTT 28 Seconds (21-31) 03/25/24 INR 0.9 (0.9-1.1) 03/25/24 HA1c 7.6 % (4.5-5.6) H 03/25/24 Blood Type A Positive 03/25/24 Antibody Screen NEGATIVE 03/25/24 Testing Electrocardiogram Date: 03/25/24 Findings: + NSR @ (64bpm) Normal EKG per cardio Chest X-Ray Date: 03/25/24 Findings: + NAD Echocardiogram Date: 06/20/23 EF: 55-60% LV Function: normal RWMA: + none Other Findings: + diastolic dysfunction (Grade II ); no LVH Mild left atrial dilation Trace MR/trace MS Mild TR Normal estimated RVSP Compared to an ECHO of Oct 2007- valvular regurgitation is now present Cervical Spine Date: 03/25/24 Degenerative changes are noted in the form of anterior marginal osteophytes, intervertebral disc height reduction noted at the level of multiple lumbar vertebrae with end plate sclerosis suggestive of moderate to severe Cervical spine spondylosis. Nuchal ligament calcification is noted at posterior aspect of C4-C6 vertebrae. Fusion of the anterior and posterior elements of C3-C4 vertebrae with loss of intervening disc space. Loss of lordosis Likely S/O block vertebrae. In cervical spine flexion and extension view shows moderate to severe Cervical spine spondylosis.
[~2024-04-08 08:31] MED LIST changes: -ACETAMINOPHEN 500 MG TAB PO SCH; -BUPIVACAINE LIPOSOME/PF 266 MG, BUPIVACAINE/EPINEPHRINE 50 ML, SODIUM CHLORIDE 0.9% 30 ... INFIL SCH; -CeleBREX 200 MG CAP PO SCH; -EPINEPHrine INJ 1 MG/ML AMP ONE; -FAMOTIDINE 20 MG TAB PO SCH; -LR 500ML BOLUS, THEN 15ML/HR IV SCH; -LR 60ML/HR IV SCH; -METOCLOPRAMIDE HCL 10 MG TABLET PO SCH; -Scopolamine 1 MG TDSY TD SCH; -TRANEXAMIC ACID 1,000 MG **IV Intra-op IV SCH; -ceFAZolin 2000MG 2,000 MG/15 ML SYR IV SCH
--- NOTE | 2024-04-08 08:50 | History & Physical Bridge Note ---
Date of Service April 08, 2024 History & Physical Bridge Note I have examined the patient, reviewed the History & Physical and in the interval since the performance of the History & Physical I have noted the following changes of clinical significance: no changes noted
[2024-04-08] MEDS: LR 60ML/HR IV SCH (09:07)
[2024-04-08] MEDS: LR 15ML/HR IV SCH (09:15)
[2024-04-08] MEDS: ACETAMINOPHEN 500 MG TAB PO SCH ×2 (09:19→15:31)
[2024-04-08] MEDS: CeleBREX 200 MG CAP PO SCH (09:19)
[2024-04-08] MEDS: METOCLOPRAMIDE HCL 10 MG TABLET PO SCH (09:19)
[2024-04-08] MEDS: dexAMETHasone**PF** 10 MG/ML VIAL IV SCH (09:20)
[2024-04-08] MEDS: FAMOTIDINE 20 MG TAB PO SCH (09:20)
[2024-04-08] MEDS ORDERED: MIDAZOLAM HCL 1 MG/ML 2ML VIAL ONE ×2 (10:24)
[2024-04-08] MEDS ORDERED: PROPOFOL IV EMULSION 10 MG/ML 20 ML VIAL IV ONE (10:30)
[2024-04-08] MEDS: ceFAZolin 2000MG 2,000 MG/15 ML SYR IV SCH ×2 (11:16→18:28)
--- OUTSIDE RECORDS SUMMARY | 2024-04-08 11:24 | External Medical Summary | Summary of Care ---
Author Name Unknown Organization [facility] Address [address] [facility] [place] [address] Phone [phone] Care Team Providers Care Embedded Hardware Engineer Name Role Phone Osiel Conley DO Primary Care Provider + Reason for Visit * Reason Comments Return Neuro Encounter Details Date Type Department Care Team (Late st Contact Info) Description 04/02/2024 2:20 PM EST Office Visit Neurology Andre Wu [place] [address] [facility] [place] [address] La Gay MD [address] [place] [address] Cervical radiculopathy*; Axonal sensorimotor neuropathy; Ulnar neuropathy of left upper extremity Allergies No known active allergiesdocumented as of this encounter (statuses as of 04/02/2024) Medications metFORMIN HCl ER 500 MG Oral Tablet Extended Release 24 Hour (Glucophage XR) Take 1 Tablet by mouth in the morning and 1 Tablet before bedtime. Active Simvastatin 80 MG Oral Tablet (Zocor) Take 1 Tablet by mouth every evening. Active METHOtrexate 1.25 MG OR TABS Take 1 Tablet by mouth once a week. Active Aspirin 81 MG Oral Tablet Chewable (Aspirin 81) Take 1 Tablet by mouth in the morning. Active Folic Acid 1 MG Oral Tablet 1 Tablet. 2 Active Lisinopril 5 MG Oral Tablet (Prinivil) 3 Active Tamsulosin HCl 0.4 MG Oral Capsule (Flomax) 1 Capsule. 2 Active PreserVision AREDS 2+Multi Vit Oral Capsule Start: 02/02/22 13:59:00 EST, PO, Daily 2 Active Gabapentin 300 MG Oral Capsule (Neurontin) Take 1 Capsule by mouth in the morning and 1 Capsule at noon and 1 Capsule before bedtime. Active Vitamin B-12 1000 MCG Sublingual Tablet Sublingual Place 1 Tablet under the tongue in the morning. Active Adalimumab 40 MG/0.8ML Subcutaneous Auto-injector Kit (Humira) Inject 0.8 mL under the skin every 14 days. Active documented as of this encounter (statuses as of 04/02/2024) Active Problems Problem Noted Date Diagnosed Date Depression 04/10/2022 Chronic back pain 04/10/2022 Chronic neck pain 04/10/2022 Diabetes type 2, controlled 04/10/2022 documented as of this encounter (statuses as of 04/02/2024) Social History Tobacco Use Types Packs/Day Years Used Date Smoking Tobacco: Never Smokeless Tobacco: Never Alcohol Use Standard Drinks/Week Comments Not Currently 0 (1 standard drink = 0.6 oz pur e alcohol) Sex and Gender Information Value Date Recorded Sex Assigned at Not on file Legal Sex Male 7:15 AM EST Gender Identity Not on file Sexual Orientation Not on file documented as of this encounter Last Filed Vital Signs Vital Sign Reading Time Taken Comments Blood Pressure 120/62 04/02/2024 2:22 PM EST Pulse 61 04/02/2024 2:22 PM EST Temperature - - Respiratory Rate - - Oxygen Saturation 99% 04/02/2024 2:22 PM EST Inhaled Oxygen Concentration - - Weight 107.7 kg (237 lb 8 oz) 04/02/2024 2:22 PM EST Height - - Body Mass Index 34.08 04/10/2022 12:01 PM EST documented in this encounter Progress Notes * La Gay MD - 04/02/2024 2:34 PM EST Progress Note - Neurology [facility] [address] [place] [address] NAME: Farrukh Matos Date of : 1955 Date of Visit: 04/02/24 Chief Complaint: Chief Complaint Patient presents with Return Neuro Subjective: f/u pain feet; meds 2.5/5 RA on humira; fx right patella-getting operated next week Neuro ROS: neg for stroke sx HOME MEDICATIONS : Current Outpatient Medications Medication Sig Dispense Refill metFORMIN HCl ER 500 MG Oral Tablet Extended Release 24 Hour (Glucophage XR) Take 1 Tablet by mouthin the morning and 1 Tablet before bedtime. Simvastatin 80 MG Oral Tablet (Zocor) Take 1 Tablet by mouth every evening. METHOtrexate 1.25 MG OR TABS Take 1 Tablet by mouth once a week. Folic Acid 1 MG Oral Tablet 1 Tablet. Lisinopril 5 MG Oral Tablet (Prinivil) Tamsulosin HCl 0.4 MG Oral Capsule (Flomax) 1 Capsule. PreserVision AREDS 2+Multi Vit Oral Capsule Start: 02/02/22 13:59:00 EST, PO, Daily Gabapentin 300 MG Oral Capsule (Neurontin) Take 1 Capsule by mouth in the morning and 1 Capsule at noon and 1 Capsule before bedtime. Vitamin B-12 1000 MCG Sublingual Tablet Sublingual Place 1 Tablet under the tongue in the morning. Adalimumab 40 MG/0.8ML Subcutaneous Auto-injector Kit (Humira) Inject 0.8 mL under the skin every 14 days. Aspirin 81 MG Oral Tablet Chewable (Aspirin 81) Take 1 Tablet by mouth in the morning. No current facility-administered medications for this visit. Review of patient's allergies indicates: No Known Allergies PHYSICAL EXAMINATION: Vital Signs: BP 120/62 | Pulse 61 | Wt 107.7 kg (237 lb 8 oz) | SpO2 99% | BMI 34.08 kg/m | BSA 2.31 m EXAM: Constitutional: appearance normally developed, well nourished. Head and Face: normocephalic and atraumatic Cardiovascular: heart sounds are normal. Rhythm is sinus NEUROLOGIC EXAM Higher integrative is obviously intact. Cranial Nerves: CN 2 - no visual defect on confrontation and pupils round, equal, reactive to light CN 3, 4, 6 - extra-ocular movements intact and no nystagmus CN 7 - no facial asymmetry CN 9, 10 - palate symmetric CN 12 - tongue midline Motor: Normal Ues, except left DI 3/5 with wasting and thenar wasting ulnar; Les same EHLs 3/5 Coordination: Normal finger to nose and rapid alternating movement of lower extremities PVE nl IMPRESSION / PLAN: PN stable;; same meds Left ulnar neuropathy-DM? RA?-EMG/NCV documented in this encounter Nursing Notes * Zayda Armenta LPN - 04/02/2024 2:21 PM EST Chief Complaint Patient presents with Return Neuro Pt is having surgery on knee next week. Pt is taking humira but is unsure of dose documented in this encounter Plan of Treatment Upcoming Encounters Date Type Department Care Team (Late st Contact Info) Description 05/20/2024 1:40 PM EDT NeuroDiagnostic Study Neurophysiology [facility] [address] [place] [address] Alexandria Oconnell MD [address] [facility] [place] [address] 09/18/2024 3:40 PM EDT Office Visit Neurology [facility] [place] [address] [place] [address] La Gay MD [address] [place] [address] Health Maintenance Due Date Last Done Comments Lipid Panel 1955 Depression Monitoring 1965 Albumin/Creatinine Ratio 1971 Diabetic Eye Exam 1971 Diabetic Foot Exam 1971 Hepatitis C Screening 1971 DTap/Tdap Vaccines (1 - Tdap) 1972 Pneumococcal Vaccine: 50+ Years (1 of 2 - PCV) 1972 Cologuard 1998 Colonoscopy 1998 Colorectal Cancer Screening 1998 Fecal Occult Blood Test 1998 Sigmoidoscopy 1998 HbA1c 02/25/2023 08/25/2022 COVID-19 Vaccine (4 - 2023-2 5 season) 2023 02/23/2021, 04/28/2020, 04/07/2020 Influenza Vaccine (FLU shot) (#1) 2023 11/16/2014 GFR 10/17/2024 10/18/2023 Zoster Vaccines Completed 08/11/2021, 06/02/2021, 11/17/2013 HPV (Gardasil) Vaccine Aged Out No lo nger eligible based on patient's age to complete this topic Hepatitis B Vaccine Aged Out No longe r eligible based on patient's age to complete this topic MENINGOCOCCAL (MENACTRA/MENVEO) Aged Out No longer eligible b ased on patient's age to complete this topic Meningitis B Vaccine (Bexsero/Trumemba) Aged Out No longer eligible b ased on patient's age to complete this topic documented as of this encounter Medical Devices Not on filedocumented as of this encounter Visit Diagnoses Diagnosis Cervical radiculopathy- Primary Brachial neuritis or radiculitis nos Axonal sensorimotor neuropathy Acute infective polyneuritis Ulnar neuropathy of left upper extremity Lesion of ulnar nerve documented in this encounter Care Teams Embedded Hardware Engineer Relationship Specialty Start Date End Date Osiel Conley DO [address] [place] [id number] PCP - General Family Medicine 04/10/22 documented as of this encounter"
[2024-04-08] MEDS: TRANEXAMIC ACID 1,000 MG **IV Intra-op IV SCH (12:24)
[2024-04-08] MEDS: ROPIV 0.5% 246mg, Ketorolac 30mg, EPINEPHrine 0.5mg in NSS INFIL SCH (12:29)
[2024-04-08] MEDS: BUPIVACAINE/EPINEPHRINE 0.5% MPF 1:200,000 30 ML VIAL ONE (12:40)
--- NOTE | 2024-04-08 12:49 | Operative Report ---
PG Post Operative Report Pre & Post Diagnosis Operation Date: 04/08/24 10:40 Pre-Op Diagnosis: Right Patella Fracture and disruption of extensor mechanism Post-Op Diagnosis: Right Patella Fracture and disruption of extensor mechanism I identified the patient and participated in the time-out.: Yes Procedure Operation Date: 04/08/24 10:40 Actual Procedures p Right partial patellectomy and Extensor Mechanism Repair(Right) - Jesse Garcia MD Surgeon Jesse Garcia MD Beauty [employer] Instructor Aubrey Gunderson PA-C Estimated Blood Loss 25 Findings Consistent with Post-Op Diagnosis Operative findings revealed a separation of the extensor Metros at the superior pole of the patella. Much of scar tissue in the intervening area. The kneecap was not grossly loose but I did not feel comfortable leaving place considering the patient's symptoms. Specimens None Anesthesia Type Spinal MAC Complications none Disposition Accompanied Patient To Recovery: No Indications Patient is a 69-year-old gentleman about 3 years out from a right knee replacement. He is done pretty well until about 6 to 8 months ago and has had several falls. He has a felt some popping and clicking 1 point. He was then seen in clinic several weeks after his falls and x-rays show a superior pole patella fracture with some slight distraction. He had good straight leg raise at that time so we treated him conservatively. Over time she is continue to have instability in his knee and feels like his quad is weak and has pain anteriorly with activities. He failed physical therapy and conservative care. He elected proceed with partial patellectomy and extensor mechanism repair in hopes of improving his strength and pain. Description of Procedure The patient was taken to the op room, identified, placed on the operating table in the supine position. All conductors were appropriately padded. IV antibiotics fibra anesthesia team. A spinal anesthetic been implemented holding area. Right Tetrick was then placed. The right lower extremity was then prepped and draped in usual sterile fashion. The right leg was elevated and exsanguinated with use of an Esmarch and a tourniquet was placed at 300 mmHg. An anterior approach of the right knee was then performed using the superior aspect of the previous incision. Sharp dissection scalp through subcutaneous tissues down the extensor mechanism. Full-thickness flaps were elevated. There was no rent or disruption obviously in the extensor mechanism. I was able to palpate the superior pole patella and then excised the scar tissue between the superior pole of patella and the fracture fragment. I then saucerized out the fracture fragment superiorly. There were multiple pieces which I very carefully removed without damaging anymore the extensor mechanism. I then palpated the kneecap. It was not grossly loose. I did use a bur to debride the upper part of the patella and for quad insertion. Upon doing this it became the kneecap became more obvious and apparent. In light of this I felt like it must have been sent to some degree slightly loose so I very carefully used an osteotome around the edges and peeled it off. That we remove this. We removed all cement that we can get to. There was no loose cement. Irrigated the wound extensively. I then proceeded with extensor Metros repair. The scar tissue in between the bone fragments was excised. I then placed 3 drill holes in the patella and passed some's passing sutures through those. I then used two #[address] a modified Bennell suture through the quad tendon and then passed it to the holes in the patella. These were then tied on the inferior pole patella. I then reinforced this with [id number] sutures of #2 FiberWire along with #1 Vicryl. I injected locally with 30 cc of half percent Marcaine with epinephrine. The tourniquet was then let down for tourniquet time 56 minutes. Hemostasis surgeries electrocautery. Wounds once again irrigated. The subcutaneous tissue then closed with 2 Dexon suture in a buried interrupted fashion skin was closed and skin emerita. Leg was then cleaned and dried and a sterile dressing was Xeroform, 4 fours, ABD pad, sterile cast. An Jonas bandage was applied. A knee immobilizer was then applied. The patient then transferred to the recovery room in stable condition. The patient tolerated procedure well and there were no complications. I attest to the content of the Intraoperative Record and any orders documented therein. Any exceptions are noted below.
--- NOTE | 2024-04-08 13:43 | Anesthesiology Progress Note ---
Date of Service April 08, 2024 Anesthesia Post Procedure Vital Signs Vital Signs: Temp Pulse Resp BP Pulse Ox O2 Del Method O2 Flow Rate 04/08/24 13:40 78 16 142/70 H 97 Room Air 04/08/24 13:30 36.3 C L 76 14 172/87 H 97 Room Air 04/08/24 13:20 78 16 157/75 H 96 Room Air 04/08/24 13:10 74 14 146/72 H 97 Room Air 04/08/24 13:00 74 12 148/73 H 96 Room Air 4 04/08/24 12:50 36.1 C L 72 15 147/75 H 100 Oxymask 4 04/08/24 08:51 36.8 C 69 20 166/89 H 97 Room Air Pain Intensity Right Knee: Pain Intensity: 4 Transfer of Care Handoff Completed per policy Notes Mental Status: alert / awake / arousable and participated in evaluation Nausea / Vomiting: adequately controlled Pain: adequately controlled Airway Patency, RR, SpO2: stable & adequate BP & HR: stable & adequate Hydration State: stable & adequate Neuraxial Anesthesia: was administered and sensory block is resolving Anesthetic Complications: no major complications apparent and Pt Satisfied with anesthetic care
[2024-04-08] MEDS ORDERED: GLUCAGON FOR INJ 1 MG VIAL SQ PRN (14:19)
[2024-04-08] MEDS ORDERED: ACETAMINOPHEN 500 MG TAB PO SCH (14:19)
[2024-04-08] MEDS ORDERED: CARBOHYDRATES FOR HYPOGLYCEMIA PO PRN (14:19)
[2024-04-08] MEDS ORDERED: oxyCODONE HCL IR 5 MG TAB (IMMEDIATE RELEASE) PO PRN (14:19)
[2024-04-08] MEDS ORDERED: METOCLOPRAMIDE HCL INJ 5 MG/ML 2 ML VIAL IV PRN (14:19)
[2024-04-08] MEDS ORDERED: NALOXONE HCL 0.4 MG/1 ML VIAL/CARP IV PRN (14:19)
[2024-04-08] MEDS ORDERED: PHARMACY GLYCEMIC MGMT CONSULT PRN ×2 (14:19)
[2024-04-08] MEDS ORDERED: ALUMINUM/MAGNESIUM SUSP 30 ML UDC PO PRN (14:19)
[2024-04-08] MEDS ORDERED: GLUCOSE 40% GEL 15 GM TUBE PO PRN (14:19)
[2024-04-08] MEDS ORDERED: ONDANSETRON INJ 2 MG/ML 2 ML VIAL IV PRN (14:19)
[2024-04-08] MEDS ORDERED: HYDROmorphone INJ 0.5 MG/0.5 ML SYR IV PRN (14:19)
[2024-04-08] MEDS ORDERED: MAGNESIUM HYDROXIDE SUSP 30 ML UDC PO PRN (14:19)
[2024-04-08] MEDS ORDERED: NON-FORMULARY MEDICATION (Semaglutide [Ozempic] 0.25 mg or 0.5 mg (2 mg/3 mL) pen injector SQ SCH (14:19)
[2024-04-08] MEDS ORDERED: DEXTROSE 50% 50 ML SYRINGE IV PRN (14:19)
[2024-04-08] MEDS ORDERED: GLUCOSE 10 TAB/TUBE PO PRN (14:19)
[2024-04-08] MEDS ORDERED: bisacodyL 10 MG SUPP PR PRN (14:19)
[2024-04-08] MEDS: KETOROLAC TROMETHAMINE 15 MG/ML VIAL IV SCH (15:30)
[2024-04-08] MEDS: LANTUS PER UNIT CHARGE SC ONE (17:05)
[2024-04-08] MEDS: INSULIN ASPART PER UNIT CHARGE SC SCH (17:05)
[2024-04-08] MEDS: ASCORBIC ACID 500 MG TAB PO SCH (17:06)
[2024-04-08] MEDS: TRANEXAMIC ACID / 0.7% NACL 1,000 MG/100 ML BAG IV SCH (18:28)
[2024-04-08] MEDS: CEROVITE ADV FORMULA TAB PO SCH (19:29)
[2024-04-08] MEDS: GABAPENTIN 300 MG CAP PO SCH (19:29)
[2024-04-08] MEDS: SIMVASTATIN 80 MG TAB PO SCH (19:30)
[2024-04-08] MEDS: ASPIRIN 81 MG ECTAB PO SCH (19:30)
[2024-04-08] MEDS: SENNA 8.6 MG TAB PO SCH (20:51)
[2024-04-08] MEDS: DOCUSATE SODIUM 100 MG CAP PO SCH (20:51)
[2024-04-08] MEDS ORDERED: SENNA 8.6 MG TAB PO SCH (21:00)
[2024-04-09] MEDS: INSULIN ASPART PER UNIT CHARGE SC ONE (02:13)
[2024-04-09 08:20] VITALS: BP 148/78; PULSE 65; RESP 15; TEMP 98.4; O2SAT 96
[2024-04-09] MEDS: FOLIC ACID 1 MG TAB PO SCH (08:27)
[2024-04-09] MEDS: dexAMETHasone 10 MG in SYRINGE 0 ML IV SCH (08:27)
[2024-04-09] MEDS: CYANOCOBALAMIN (B-12) 500 MCG TABLET PO SCH (08:28)
[2024-04-09] MEDS: TAMSULOSIN HCL 0.4 MG CAP PO SCH (08:28)
[2024-04-09] MEDS: lisinopril 5 MG TAB PO SCH (08:28)
[2024-04-09] MEDS: LANTUS PER UNIT CHARGE SC ONE (08:34)
[2024-04-09] MEDS ORDERED: MULTIVITAMIN TAB PO SCH (09:00)
--- NOTE | 2024-04-09 11:09 | Orthopedic Progress Note ---
Date of Service April 09, 2024 Assessment & Plan (1) History of total right knee replacement: (2) S/P right knee surgery: (3) Right patella fracture: Plan 69-year-old gentleman POD# 1 s/p right knee partial patellectomy and extensor mechanism repair, doing well overall. Pain is well-controlled. Medically stable. He is neurologically intact. Plan: 1. DVT prophylaxis w/ TEDs, SCDs, ASA 81 mg BID. 2. PT/OT as tolerated. WBAT on the RLE, but with knee immobilizer on at all times when ambulatory to keep knee in full extension. 3. Pain control doing well with current pain regimen. 4. Dressing change POD#2 per discharge instructions. 5. Disposition - D/C home today once cleared by PT/OT. 6. F/u 2 weeks post-op w/ orthopedics (Dr. Garcia's), or as previously scheduled, for first post-op visit. Subjective Patient is POD# 1 s/p right knee partial patellectomy and extensor mechanism repair by Dr. Garcia on 04/09/2023. Patient says his pain is well-controlled this morning. Denies CP, SOB, N/V, R LE paresthesia. He has been compliant with wear of the knee immobilizer. Patient says that he may be ready to go home later today. Review of Systems All systems reviewed & are unremarkable except as noted in HPI & below. Physical Exam GENERAL: AA&Ox3, NAD. Pleasant, affect is calm. Sitting on edge of bed and appears comfortable. Witnessed patient ambulating with walker on his own from bathroom to bed. RESPIRATORY: Normal respiratory effort with no signs of distress. CHEST/AXILLA: Chest movement symmetrical. No deformities noted. CARDIOVASCULAR: No edema noted. SKIN: [place], warm and dry. MS/EXTREMITY: Knee dressing c/d/i. TESFAYE hose donned to contralateral LE. + ankle dorsi/plantarflexion. NVI distally. Calf soft/NT. PT/DP pulses intact, 2+. Results & Data Results & Data Laboratory Results . Laboratory Results - last 24 hr 04/08/24 04/08/24 04/08/24 12:53 16:31 20:45 POC Glucose 184 H 235 H 224 H 04/09/24 04/09/24 02:04 08:06 POC Glucose 160 H 172 H Diagnostic Findings . PG Care Time/CCT Total # of Minutes Spent Total Time Spent with Patient: Total time spent is greater than 50% in coordination of care (as documented) at patient's floor/unit and/or counseling patient: C[place] [address] SUB INP/OBS CARE 2/35MIN Patient Type Established History Expanded Problem Focused Exam Expanded Problem Focused Medical Decision Making Low Complexity Diagnoses History of total right knee replacement Z96.651 S/P right knee surgery Z98.890 Right patella fracture S82.001A
--- NOTE | 2024-04-09 12:07 | Discharge Summary ---
Date of Service April 09, 2024 Admission HPI (Per Admitting) The patient is a 69-year-old gentleman who is now about 3 years out from a knee replacement. He did pretty well until about 6 months ago. He has had multiple falls recently and thinks he injured this about 6 months ago. He then had an episode four or five months ago when he was going on a ladder and felt a pop in his knee. He had been seen by Aubrey several months after that. He was diagnosed with a fairly minimally displaced patellar fracture. His extensor mechanism was intact, but it was a bit weak. He was treated conservatively. He continues to have persistent pain, discomfort, and a feeling of instability. He feels like something is moving around in his knee. He presents for followup. He has been recently diagnosed with a more formal rheumatoid arthritis and on IV medicine as well as methotrexate. He has had multiple back operations as well. Admission Exam (Per Admitting) Gen: Physical examination shows a pleasant middle-aged male. He looks to be in pretty good health. HEENT: Benign. Neck: Supple. No lymphadenopathy. Lungs: Clear to auscultation. Heart: Regular rate and rhythm. Abdomen: Soft, nontender, and nondistended. Extremities: Grossly neurovascularly intact except as follows: Examination of the right knee reveals the patient walks with the use of a cane. His knee incision has healed nicely. There is not much in the way of swelling of his knee. He does feel like there is something palpably loose around his patella. He can do a straight leg raise but it is weak. There is some tenderness over the front of his kneecap. Range of motion is about 10 degrees short of full extension to about 110 degrees of flexion. No gross instability. XR Exam: We did get some repeat x-rays of his knee today. We have a right knee 3-view knee series. It shows a cemented knee replacement. Tibial and femoral components looked to be in good position. He does have a displaced superior pole fracture of his patella. It does look like it is displaced a little bit more than previously. Principal Diagnosis Same as "Discharge Diagnosis" noted below under Discharge Instructions. Discharge Exam GENERAL: AA&Ox3, NAD. Pleasant, affect is calm. Sitting on edge of bed and appears comfortable. Witnessed patient ambulating with walker on his own from bathroom to bed. RESPIRATORY: Normal respiratory effort with no signs of distress. CHEST/AXILLA: Chest movement symmetrical. No deformities noted. CARDIOVASCULAR: No edema noted. SKIN: [place], warm and dry. MS/EXTREMITY: Knee dressing c/d/i. TESFAYE hose donned to contralateral LE. + ankle dorsi/plantarflexion. NVI distally. Calf soft/NT. PT/DP pulses intact, 2+. Discharge Data Procedures Performed Operation Date: 04/08/24 10:40 Actual Procedures p Right partial Patellectomy and Extensor Mechanism Repair(Right) - Jesse Garcia MD Ordered Studies 04/08/24 05:00 US - OR guided needle placemen Routine Hospital Course (1) Right patella fracture: (2) History of total right knee replacement: (3) S/P right knee surgery: Plan On April 08, [address] [facility] operating room and underwent a right knee partial patellectomy and extensor mechanism repair without complications. Patient had an adductor canal block and spinal anesthetic for the procedure. Postoperatively, patient was transferred to the general orthopedic floor in stable condition and eventually started onto aspirin 81 mg twice daily for DVT prophylaxis as appropriate. Patient's hospital course was uneventful. On postoperative day #1, patient's vital signs were stable and pain was well-controlled. Patient was able to participate well with physical therapy, safely performing the necessary ambulation and range of motion exercises and properly demonstrating ADL tasks. Patient was then discharged home in stable condition, with self-care and assistance from his . Patient will follow-up with orthopedics in 2 to 3 weeks for postoperative care. PG Care Time/CCT Total # of Minutes Spent Total Time Spent with Patient: Total time spent is greater than 50% in coordination of care (as documented) at patient's floor/unit and/or counseling patient: Discharge Plan Discharge Items Patient Disposition: Home - Home Health Services Reason For Visit: Right Patella Fracture Discharge Diagnosis: Right Knee partial patellectomy and extensor mechanism repair Activity: Per Instructions section Activity Comment: Weightbear as tolerated in knee immobilizer. No knee range of motion. Weightbearing: Full weightbearing Weightbearing Comment: Weightbear as tolerated in knee immobilizer. No knee range of motion Non-emergency contact: Surgeon Call non-emergency contact if: you have any medication questions Follow-up/Referrals: Jesse Garcia MD [Physician] - (as scheduled on 04/24/24 @13:10) Osiel Conley, DO [Primary Care Provider] - Diet: Carb Consistent or DM2 Addtl Attending Provider Instructions: Knee immobilizer at all times except for hygiene. May fully weightbear as tolerated IN KNEE IMMOBILIZER. No knee range of motion. No bending knee. Change dressing daily. Replace with dry dressing. Pending Studies at Discharge: No Stand-Alone Forms: My [facility], Smoking Cessation Medications and DC Order Prescriptions: Continued mecobalamin (vitamin B12) 1,000 mcg tablet,disintegrating 1,000 mcg sublingual DAILY 90 Days Qty: 90 1RF Rx Instructions: place tablet under tongue and allow to dissolve for at least30 secs before swallowing lisinopril 5 mg tablet 5 mg PO DAILY Qty: 90 3RF simvastatin 80 mg tablet 80 mg PO HS Qty: 90 3RF tamsulosin 0.4 mg capsule 0.4 mg PO QAM Qty: 90 3RF (DME) lancets [facility] [place] See Dose Instructions .ROUTE .MEDSUPPLY Qty: 100 11RF Rx Instructions: test once daily (DME) OneTouch Ultra Test Strip See Rx Instructions .Route Qty: 100 3RF Rx Instructions: test once daily clindamycin HCl 300 mg capsule 600 mg PO ONCE Qty: 6 3RF Rx Instructions: take 2 caps 1 hour prior to dental appointment (DME) lancets 33 gauge misc See Dose Instructions .ROUTE .MEDSUPPLY Qty: 100 5RF Dose Instruction: As directed Rx Instructions: TEST ONCE DAILY metformin 500 mg tablet extended release 24 hr 1,000 mg PO BID 90 Days Qty: 360 2RF oxycodone 5 mg tablet 5 - 10 mg PO Q6 PRN (Reason: pain) Qty: 40 0RF Rx Instructions: Take as needed for pain ondansetron 4 mg tablet,disintegrating 4 mg PO Q8 PRN (Reason: nausea) Qty: 20 1RF Rx Instructions: Take as needed for nausea ketorolac 10 mg tablet 10 mg PO Q6 5 Days Qty: 20 0RF Rx Instructions: Take 4 times per day with food for 5 days to lessen pain and swelling. sennosides [Senokot] 8.6 mg tablet 8.6 mg PO BID 14 Days Qty: 28 0RF Rx Instructions: Take two times a day to prevent/treat constipation acetaminophen [Tylenol Extra Strength] 500 mg tablet 1,000 mg PO TID 30 Days Qty: 180 0RF Rx Instructions: Take 3 times per day to lessen pain. aspirin [Iraida Low Dose Aspirin] 81 mg tablet,delayed release (DR/EC) 81 mg PO BID 45 Days Qty: 90 0RF Rx Instructions: Take to prevent blood clots. cefadroxil 500 mg capsule 500 mg PO BID 7 Days Qty: 14 0RF Rx Instructions: Take 1 cap twice a day to prevent infection methotrexate sodium 2.5 mg tablet 2.5 mg PO DIRECTED Rx Instructions: per pt 8 pills ON SUNDAYS folic acid 1 mg tablet 1 mg PO QAM (DME) blood-glucose meter [Adnexusuch Ultra2 Meter] Kit See Dose Instructions .ROUTE .MEDSUPPLY Qty: 1 0RF Rx Instructions: As directed Ozempic 0.25 mg or 0.5 mg (2 mg/3 mL) pen injector 0.25 mg subcut Q7D Qty: 3 1RF PreserVision AREDS 7,160 unit- 113 mg-100 unit Tablet 1 tab PO BID aspirin 81 mg Tablet,Delayed Release (Dr/Ec) 81 mg PO DAILY Humira 40 mg/0.8 mL Syringe Kit 0 mg SUBCUT .COMPLEX Rx Instructions: inject one - 40 mg/0.8 mL syringe every 2 weeks sildenafil [Viagra] 25 mg tablet 25 mg PO DAILY PRN (Reason: sexual activity) Rx Instructions: administer 30 minutes to 4 hours before activity Discontinued tramadol 50 mg tablet 50 mg PO Q6H PRN (Reason: pain) Qty: 12 0RF diclofenac sodium 75 mg tablet,delayed release (DR/EC) 75 mg PO BID PRN (Reason: pain) 90 Days Qty: 180 1RF No Action gabapentin 300 mg capsule 300 mg PO BID Qty: 180 3RF Discharge Orders: Discharge Order (Routine); Ordered 04/09/24 Ordered By: Antonio Alaniz Admission Data Admit Date/Time: 04/08/24 12:47 Attending Provider: Jesse Garcia Admit Provider: Jesse Garcia Primary Care Provider: Osiel Conley Other Providers: [facility] Other Interventions: Discharge Summary Assessment (RN) Last Done: 04/09/24 10:11
== END 2024-04-09 11:06 | disposition home health service (06) | DRG 489 ==
LOC: ASU 08:31 → OBSVTOIN 12:47 → INTOOBSV 12:47 → 3E 12:47